=== PATIENT | female | born 1995 | race Two or more races ===

== ENCOUNTER 2018-05-28 15:55 | Inpatient (IN) | payer OTHER ==
[~2018-05-28] VITALS: Ht 154.9 cm; Wt 70.8 kg
[~2018-05-28 15:55] MED LIST: PNV1COMB5
[2018-06-02] MEDS ORDERED: LIDOCAINE/SOD BICARB 8.4% SYR SC PRN (19:15)
[2018-06-02] MEDS ORDERED: DINOPROSTONE 10 MG INSERT PV ONE (19:15)
[2018-06-02] MEDS ORDERED: METOCLOPRAMIDE 10 MG/2 ML SDV IVP PRN (19:15)
[2018-06-02] MEDS ORDERED: FAMOTIDINE(*) 20MG/50ML PREMIX 50 ML IVPB PRN (19:15)
[2018-06-02] MEDS ORDERED: cefOXitin/DEX(*) 2GM/50ML PREM 50 ML IVPB PRN (19:15)
[2018-06-02] MEDS ORDERED: FLUSH 10 ML SYR IVP PRN (19:15)
[2018-06-02] MEDS ORDERED: LIDOCAINE 1% LOCAL 300 MG/30ML INJ PRN (19:15)
[2018-06-02 19:30] VITALS: BP 137/88; Ht 154.9 cm; Wt 70.8 kg
[2018-06-02 20:13] LABS: PLATELET COUNT, AUTOMATED 160 K/uL (150-450)
[2018-06-02] MEDS ORDERED: OXYTOCIN 30 UNIT/D5LR 500 ML 500 ML IV PRN (20:44)
[2018-06-02] MEDS: DLR(*) 1000 ML BAG 1,000 ML IV PRN (21:31)
[2018-06-02] MEDS: LR(*) 1000 ML BAG 1,000 ML IV PRN (21:32)
[2018-06-03] MEDS: DLR(*) 1000 ML BAG 1,000 ML IV PRN ×2 (05:36→19:28)
[2018-06-03] MEDS ORDERED: fentaNYL CITR 100 MCG/2 ML AMP IT PRN (07:00)
[2018-06-03] MEDS ORDERED: FENTANYL/ROPIVACAINE 100 ML BAG EPI PRN (07:00)
[2018-06-03] MEDS ORDERED: LIDOCAINE/PF 2% 200MG/10ML AMP 200 MG/10 ML AMPUL EPI PRN (07:00)
[2018-06-03] MEDS ORDERED: BUPIVACAINE 0.25% MPF INJ EPI PRN (07:00)
[2018-06-03] MEDS ORDERED: BUPIVACAINE 0.5% INJ 30ML VIAL EPI PRN (07:00)
[2018-06-03] MEDS ORDERED: LIDO/EPI 2% MPF 1:200,000 20ML EPI PRN (07:00)
--- NOTE | 2018-06-03 08:00 | History & Physical ---
History of Present Illness Age of Patient: 22 : 1 Para or TPAL: 0000 EDC per LMP: May 28, 2018 Estimated Gestational Age: 40.6 Chief Complaint post term History of Present Illness The patient is a 22 year old 1 para 0000 admitted at 40 6/7 weeks estimated gestational age with an estimated date of delivery 05/28/18. Patient is admitted for IOL for post term. No vaginal bleeding. Good movement and occasional contractions. She was evaluated for active labor. She had an uncomplicated course. Her record was reviewed. History Allergies: Coded Allergies: No Known Drug Allergies (Unverified , 08/20/17) Med Rec Home Meds Reported Medications Pnv #116/Iron Fumarate/Fa/Dha (EXPECTA COMBO PACK) 1 Each Combo..pkg 05/07/18 Exam General Exam Vital Signs Vital Signs Date Time Temp Pulse Resp B/P (MAP) Pulse Ox O2 Delivery O2 Flow Rate FiO2 06/02/18 19:30 97.7 83 16 137/88 (104) 97 Room Air Cardiovascular: Regular Rate and Rhythm Respiratory: Clear to Auscultation Abdomen: Gravid - Non-Tender Extremities: No Edema Cervical Dialation: 2 Cervical Effacement (%): 80 Cervical Consistency: Soft Cervical Position: Mid Station: -1 Presentation: Vertex Uterine Contractions(Q min): 10 Uterine Contraction Strength: Mild Fetus Heart Tones: 130 Heart Tone Variabilty: Moderate FHT Category: I Medical Decision Making Data Points Result Diagram: 06/02/181957 Assessment and Plan Problems: (1) Post-dates Assessment & Plan: cervadil placed for IOL, cytotec placed will monitor for change Copies to: POOJA LAKE MD ; Problem Qualifiers (1) Post-dates : Post-term type: 40-42 weeks gestation Qualified Codes: O48.0 - Post-term POOJA LAKE MD Jun 03, 2018 08:00
[2018-06-03] MEDS ORDERED: MISOPROSTOL 25 MCG CAP PV PRN (08:10)
[2018-06-03] MEDS ORDERED: MISOPROSTOL 25 MCG CAP ONE (08:18)
[2018-06-03] MEDS ORDERED: EPIDURAL KEYS XX PRN (12:00)
--- NOTE | 2018-06-03 12:49 | Labor Progress Note ---
Labor Subjective Progress Notes Subjective feeling mild contractions Labor Pain: Mild Labor Objective Vital Signs Vital Signs Date Time Temp Pulse Resp B/P (MAP) Pulse Ox O2 Delivery O2 Flow Rate FiO2 06/02/18 19:30 97.7 83 16 137/88 (104) 97 Room Air Cervical Dialation: 2.5 Cervical Effacement (%): 90 Cervical Consistency: Moderate Cervical Position: Mid Station: 0 Presentation: Vertex Uterine Contractions(Q min): 3 Uterine Contraction Strength: Mild Fetus Heart Tones: 130 Heart Tone Variabilty: Moderate FHT Accelerations: 15X15 FHT Category: I Other Result Diagram: 06/02/181957 Assessment and Plan Problems: (1) Post-dates Assessment & Plan: AROM CLEAR FLUID, WILL MONITOR FOR CERVICAL CHANGE Problem Qualifiers (1) Post-dates : Post-term type: 40-42 weeks gestation Qualified Codes: O48.0 - Post-term POOJA LAKE MD Jun 03, 2018 12:49
[2018-06-03] MEDS ORDERED: ONDANSETRON 4 MG/2 ML VIAL IVP PRN (16:30)
--- NOTE | 2018-06-03 17:47 | Labor Progress Note ---
Labor Subjective Progress Notes Subjective FEELING CONTRACTIONS Vaginal Discharge/Fluid: Clear Fluid Labor Pain: Moderate Labor Objective Vital Signs Vital Signs Date Time Temp Pulse Resp B/P (MAP) Pulse Ox O2 Delivery O2 Flow Rate FiO2 06/02/18 19:30 97.7 83 16 137/88 (104) 97 Room Air Cervical Dialation: 4 Cervical Effacement (%): 100 Cervical Consistency: Soft Cervical Position: Anterior Station: 0 Presentation: Vertex Uterine Contractions(Q min): 3 Uterine Contraction Strength: Moderate Fetus Heart Tones: 130 FHT Category: I Other Result Diagram: 06/02/181957 Assessment and Plan Problems: (1) Post-dates Assessment & Plan: FEELING CONTRACTIONS CONSIDERING AN EPIDURAL, MAY NEED IUPC TO ASSESS STRENGTH OF CONTRACTIONS Problem Qualifiers (1) Post-dates : Post-term type: 40-42 weeks gestation Qualified Codes: O48.0 - Post-term POOJA LAKE MD Jun 03, 2018 17:47
[2018-06-03] MEDS: fentaNYL CITR 100 MCG/2 ML AMP IVP PRN ×2 (17:54→20:02)
[2018-06-03] MEDS ORDERED: NS(*) 0.9% 1000 ML BAG 1,000 ML PV PRN (19:56)
--- NOTE | 2018-06-03 19:56 | Labor Progress Note ---
Labor Subjective Progress Notes Subjective feeling contractions Vaginal Discharge/Fluid: Clear Fluid Labor Pain: Moderate Labor Objective Vital Signs Vital Signs Date Time Temp Pulse Resp B/P (MAP) Pulse Ox O2 Delivery O2 Flow Rate FiO2 06/02/18 19:30 97.7 83 16 137/88 (104) 97 Room Air Cervical Dialation: 5 Cervical Effacement (%): 100 Cervical Consistency: Soft Cervical Position: Anterior Presentation: Vertex Uterine Contractions(Q min): 3 Uterine Contraction Strength: Strong Fetus Heart Tones: 130 Heart Tone Variabilty: Moderate FHT Decelerations: Variable FHT Category: II Other Result Diagram: 06/02/181957 Assessment and Plan Problems: (1) Post-dates Assessment & Plan: IUPC AND FSE PLACED WILL AMNIOINFUSE WILL MONITOR FOR CHANGE Problem Qualifiers (1) Post-dates : Post-term type: 40-42 weeks gestation Qualified Codes: O48.0 - Post-term POOJA LAKE MD Jun 03, 2018 19:56
[2018-06-03] MEDS ORDERED: NS(*) 0.9% 1000 ML BAG 1,000 ML ONE (19:58)
[2018-06-03] MEDS: LR(*) 1000 ML BAG 1,000 ML IV PRN ×2 (20:35→22:40)
--- NOTE | 2018-06-03 21:30 | Labor Progress Note ---
Labor Subjective Progress Notes Subjective FEELING CONTRACTIONS Vaginal Discharge/Fluid: Clear Fluid Labor Pain: Severe Labor Objective Vital Signs Vital Signs Date Time Temp Pulse Resp B/P (MAP) Pulse Ox O2 Delivery O2 Flow Rate FiO2 06/02/18 19:30 97.7 83 16 137/88 (104) 97 Room Air Cervical Dialation: 5 Presentation: Vertex Uterine Contractions(Q min): 3 Uterine Contraction Strength: Strong Fetus Heart Tones: 120 Heart Tone Variabilty: Moderate FHT Decelerations: Early FHT Category: II Other Result Diagram: 06/02/181957 Assessment and Plan Problems: (1) Post-dates (2) Active labor at term Assessment & Plan: NO SIGNIFICANT CHANGE DESPITE ADEQUATE CONTRACTIONS. OFFERED C SECTION VS EPIDURAL TO SEE IF IMPROVED PAIN CONTROL WOULD HELP, WILL GET EPIDURAL AND MONITOR FOR CHANGE IN CERVIX Problem Qualifiers (1) Post-dates : Post-term type: 40-42 weeks gestation Qualified Codes: O48.0 - Post-term POOJA LAKE MD Jun 03, 2018 21:30
--- NOTE | 2018-06-03 22:41 | Anesthesia OB Pre-Anes Eval ---
History of Present Illness Anesthesia Start Date: Jun 03, 2018 Anesthesia Start Time: 21:45 OB Anesthesia Diagnosis: induction - medical Complications: None known EDC: May 28, 2018 : 1 Para: 0 Vital Signs: Vital Signs Date Time Temp Pulse Resp B/P (MAP) Pulse Ox O2 Delivery O2 Flow Rate FiO2 06/02/18 19:30 97.7 83 16 137/88 (104) 97 Room Air Pain Ratin Heart Tones: WNL Result Diagram: 06/02/181957 Height (Inches): 61.00 Weight (Pounds): 156 BMI Calculated: 29.47 Past Medical History Medical History: no pertinent history Surgical History: no surgical history Attended Childbirth Classes?: No Hx Anesthesia Reactions: No Hx Family Anesthesia Reaction: No Current Medications: pain medication (IV Fentenyl x2 doses) Home Meds Reported Medications Pnv #116/Iron Fumarate/Fa/Dha (EXPECTA COMBO PACK) 1 Each Combo..pkg 05/07/18 Allergies: Coded Allergies: No Known Drug Allergies (Unverified , 08/20/17) Anesthesia OB ROS Neurological: No migraines/headaches, No seizures, No neuropathy Eyes ROS: contacts in Contacts Statement: Patient agrees to continued use of contacts if general anesthesia is required. ENT: Denies Tooth caps, Denies Loose teeth, Denies Chipped teeth, Denies Dentures, Denies Bridges, Denies Retainers, Denies Veneers, Denies Implants, Denies Tongue ring Pulmonary: No asthma, No smoker (pks/day/yrs) Airway Class: lll Cardiovascular ROS: No edema, No arrhythmia GI ROS: clear liquids Last Solids Date: Jun 02, 2018 Last Solids Time: 22:00 ROS: No Herpes, No STD(s), No Liver Disease, No Renal Disease; Other Endocrine ROS: No diabetes, No gestational diabetes, No thyroid disorder Musculoskeletal ROS: No low back pain, No low back injury, No scoliosis ASA Classification: 2 Assessment and Plan Anesthesia Plan: CSE Assessment Past Medical, Surgical, Family and Obstetric Histories reviewed. Please see ACOG chart. Epidural anesthesia risks, complications and benefits explained to patient's satisfaction for labor and vaginal delivery and/or section. General anesthesia risks and benefits explained to patient's satisfaction. Questions invited, none asked. VARUN FIGUEROA CRNA Jun 03, 2018 22:41
--- NOTE | 2018-06-03 22:46 | Procedure Note ---
Anesthetic Placement Note Anesthesia Plan: CSE Permit for Anesthesia Signed: Yes Anesthesia Technique: Patient Sitting Anesthesia Prep: Chlorhexidine Interspace: L 3-4 Local Anesthetic: 1% Lidocaine, 25 Gauge Needle Amount Local - cc's: 2 Anesthesia Needle: 17g Touhy/Schliff Anesthesia Attempts: 1 Loss of Resistance: Air Depth of BETITO (cm): 4 Epidural Needle Placement: No CSF, No Blood, No Parasthesia Intrathecal Needle: 27 Gauge Pencan Cerebral Spinal Fluid: Yes, Clear Catheter Insertion (cm): 10 Catheter Type: Alvarez - Spring Wound Epidural Dressing: Tegaderm, Tape, Adhesive [place] Anesthesia Tray: Lot Number ([id number]), Expiration Date (2019-06-05), Reference Number ([id number]) Anesthesia Medications: Intrathecal Dose: mcg Fentanyl (15), mg Marcaine MPF (1.75), Time (2206) Epidural Test Dose: 1.5 Lido/Epi (1:200,000), Dose - mL (2), Time (0), Negative Epidural Loading Dose: 0.2% Ropivicaine, With Fentanyl 2mcg/ml, Dose - ml (5), Time (2222) Epidural Infusion: 0.2% Ropivicaine, With Fentanyl 2mcg/ml, Start Time: (2222) Epidural Pump Setting: Bolus Dose - mL (5), Lockout - Minutes (20), Maintenance Rate - mL/hr (6), Maximum per Hour - mL (21) Complications: None Comment: Pt. tolerated procedure very well. Becae comfortable within 5-7 minutes. Mild itching noted. VARUN FIGUEROA CRNA Jun 03, 2018 22:46
--- NOTE | 2018-06-03 23:15 | Labor Progress Note ---
Labor Subjective Progress Notes Subjective COMFORTABLE WITH EPIDURAL Vaginal Discharge/Fluid: Clear Fluid Labor Pain: Comfortable Labor Objective Vital Signs Vital Signs Date Time Temp Pulse Resp B/P (MAP) Pulse Ox O2 Delivery O2 Flow Rate FiO2 06/02/18 19:30 97.7 83 16 137/88 (104) 97 Room Air Cervical Dialation: 9 Cervical Effacement (%): 100 Cervical Consistency: Soft Cervical Position: Anterior Station: +2 Presentation: Vertex Uterine Contractions(Q min): 3 Uterine Contraction Strength: Strong Fetus Heart Tones: 120 Heart Tone Variabilty: Moderate FHT Decelerations: Variable FHT Category: II Other Result Diagram: 06/02/181957 Assessment and Plan Problems: (1) Post-dates (2) Active labor at term Assessment & Plan: MAKING PROGRESS WITH EPIDURAL IN PLACE, WILL MONITOR FOR CHANGE IN CERVIX Problem Qualifiers (1) Post-dates : Post-term type: 40-42 weeks gestation Qualified Codes: O48.0 - Post-term POOJA LAKE MD Jun 03, 2018 23:15
--- NOTE | 2018-06-03 23:29 | Anesthesia Progress Note ---
Progress/Maintenance Anesthesia Note Date: Jun 03, 2018 Anesthesia Note Time: 23:00 Pain Intensity: 0 Pump: On Pump Rate (ML/HR): 2 Sensory Level: T-10 Motor Level: Other Dilatation: 7 Position: Right, Tilt Assessment and Plan Assessment Pt. states her legs are becoming very heavy. Epidural pump rate decreased to 2ml/hr until pt begins to feel contractions again. VARUN FIGUEROA CRNA Jun 03, 2018 23:28
[2018-06-04] MEDS: LR(*) 1000 ML BAG 1,000 ML IV PRN (00:40)
--- NOTE | 2018-06-04 01:33 | OB Delivery Note ---
Delivery Note Vaginal Delivery Type: Spont. Vaginal Delivery Delivery Date: Jun 04, 2018 Delivery Time: 00:59 Estimated Gestational Age(wks): 41 Delivery Anesthesia: Epidural Sex: Male Infant Weight (gms): [address] [place] Apgars: 1 Minute (6), 5 Minute (9) Repair Needed: Laceration, Superficial, Vaginal Estimated Blood Loss: 400 Delivery Complications: Nuchal Cord, Other (TRUE KNOT) Notes: IOL WITH CERVADIL WITHOUT ANY PROGRESS OVER NIGHT. GIVEN ONE DOSE OF CYTOTEC AND MADE CERVICAL CHANGE AND AROM WITH CLEAR FLUID PERFORMED. MADE SLOW PROGRESS AND THEN NO CHANGE AT 5 CM, RECEIVED EPIDURAL AND PROGRESSED TO COMPLETE AND ALLOWED TO PUSH. VERTEX DELIVERED OVER INTACT PERINEUM NUCHAL CORD DELIVERED OVER HEAD AND TRUE KNOT NOTED. REMAINDER OF DELIVERED WITH EASE. DRIED AND PASSED TO WARMER. CORD PH AND CORD BLOOD OBTAINED. PH AT 7.15, HCO3 22, CO2 64, BE -7. PLACENTA DELIVERED AND REPAIR WITH 3-0 VICRYL ON SUPERFICIAL LACERATIONS. 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
[2018-06-04] MEDS ORDERED: LANOLIN OINT 7 GM TUBE TP PRN (01:35)
[2018-06-04] MEDS ORDERED: ACETAMINOPHEN 325 MG TAB PO PRN (01:35)
[2018-06-04] MEDS ORDERED: HYDROCORTISONE 2.5% CR 30GM TB PR PRN (01:35)
[2018-06-04] MEDS ORDERED: MAGNESIUM HYDROXIDE* 30ML UDCP PO PRN (01:35)
[2018-06-04] MEDS ORDERED: BENZOCAINE 20% 60 ML BTL TP PRN (01:35)
[2018-06-04] MEDS ORDERED: GLYCERIN/WITCH HAZEL LEAF 1 PK TOP PRN (01:35)
[2018-06-04] MEDS ORDERED: IBUP800T37 PO ×2 (01:37→09:25)
--- NOTE | 2018-06-04 01:38 | OB/GYN Discharge Summary ---
Discharge Summary Reason for Hosp/Final Diag: (1) Post-dates (2) Active labor at term (3) care following vaginal delivery Hospital Course & Plan: VAGINAL DELIVERY ON DAY 1, Pain controlled, Tolerating diet and activity. Baby . Normal lochia. Lates Vital Signs Vital Signs Date Time Temp Pulse Resp B/P (MAP) Pulse Ox O2 Delivery O2 Flow Rate FiO2 06/02/18 19:30 97.7 83 16 137/88 (104) 97 Room Air Weight (Pounds): 156 Result Diagram: 06/02/181957 Condition: Improved Discharge: Home, Self [facility] Meds Reported Medications Pnv #116/Iron Fumarate/Fa/Dha (EXPECTA COMBO PACK) 1 Each Combo..pkg 05/07/18 [facility] [phone] Follow up in: 6 wks PP or PO Discharge Diet: As Tolerates Discharge Activity: Pelvic Rest Copies to: POOJA LAKE MD ; Problem Qualifiers (1) Post-dates : Post-term type: 40-42 weeks gestation Qualified Codes: O48.0 - Post-term POOJA LAKE MD Jun 04, 2018 01:38
--- NOTE | 2018-06-04 01:40 | Anesthesia Progress Note ---
Progress/Maintenance Anesthesia Note Date: Jun 04, 2018 Anesthesia Note Time: 01:15 Pain Intensity: 0 Pump: Off Sensory Level: t-12 Motor Level: Bending Knees-Bilateral Dilatation: 10 Position: Semi-Fowlers Assessment and Plan Assessment Epidural pump remained at 2ml/hr. Pt was very comfortable, able to push well and had excellent tolerance of delivery and repair. Empty syringe attached to epidural catheter and RN agrees to remove with ambulation. Patient instructed the first ambulation is to be with help of nursing staff. Instructed to preform deep knee bends at bedside before walking. Anesthesia Stop Day: Jun 04, 2018 Anesthesia Stop Time: 01:15 VARUN FIGUEROA CRNA Jun 04, 2018 01:40
[2018-06-04] MEDS: IBUPROFEN 800 MG TAB PO SCH ×3 (04:21→19:03)
[2018-06-04 05:14] VITALS: BP 131/74
[2018-06-04] MEDS ORDERED: IBUPROFEN 800 MG TAB PO SCH (09:00)
[2018-06-04] MEDS: DOCUSATE CALCIUM 240 MG CAP PO SCH ×2 (09:04→21:27)
[2018-06-04] MEDS: MULTIVITAMINS (PRENATAL) TAB PO SCH (09:04)
--- NOTE | 2018-06-04 09:17 | OB/GYN Progress Note ---
OB Subjective Progress Notes Subjective Pain controlled, Tolerating diet and activity. Baby . Normal lochia. GI: POS Flatus; NEG Nausea, NEG Vomiting : Voiding Well Pain: Mild OB Objective Physical Exam Vital Signs Date Time Temp Pulse Resp B/P (MAP) Pulse Ox O2 Delivery O2 Flow Rate FiO2 06/04/18 05:14 98.4 108 16 131/74 (93) 96 Room Air Intake and Output 06/04/18 06:59 Intake Total 5300 ml Output Total 1000 ml Balance 4300 ml Intake IV Total 5300 ml Output Urine Total 1000 ml # Voids 1 Cardiovascular: Regular Rate and Rhythm Respiratory: Clear to Auscultation Abdomen: Soft, Non-Tender, Non-Distended, Bowel Sounds Present, Fundus Firm Extremities: No Edema Result Diagram: 06/02/181957 Assessment and Plan Post Day: 0 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 Baby . Normal lochia. Problem Qualifiers (1) Post-dates : Post-term type: 40-42 weeks gestation Qualified Codes: O48.0 - Post-term POOJA LAKE MD Jun 04, 2018 09:17
[2018-06-04 10:00] VITALS: BP 114/68
[2018-06-04] MEDS ORDERED: DIPHTH/TETANUS/ACEL. PERTUSSIS IM ONLY ONE (10:00)
[2018-06-04] MEDS ORDERED: MEASLES,MUMP,RUBELLA VAC 0.5ML SUBQ ONE (10:00)
[2018-06-04] MEDS ORDERED: INFLUENZA VIRUS VAC 0.5 ML SYR IM ONLY ONE (10:00)
--- NOTE | 2018-06-04 11:04 | Anesthesia Post Eval Note ---
Anesthesia Post Eval Note Vital Signs Date Time Temp Pulse Resp B/P (MAP) Pulse Ox O2 Delivery O2 Flow Rate FiO2 06/04/18 05:14 98.4 108 16 131/74 (93) 96 Room Air Pt able to participate in Eval: Yes Cardiovascular Status: Satisfactory Respiratory Status: Satisfactory Pain Managment: Satisfactory PO Nausea/Vomiting: Satisfactory Temperature Management: Satisfactory Mental Status: Satisfactory, Alert, Oriented X3 Post-Op Hydration Status: Satisfactory, Tolerating PO Well, Voiding w/o Difficulty Anesthesia Type: CSE Anesthesia Tolerance: Tolerated procedure well without apparent anesthetic complications. LP site clear, no redness or edema. Denies headache or any residual paresthesia. Vital Signs Stable, Patient comfortable and condition stable. VARUN FIGUEROA CRNA Jun 04, 2018 11:04
[2018-06-04 13:00] VITALS: BP 111/67
[2018-06-04] MEDS: HYDROmorphone HCL 2 MG TAB PO PRN ×2 (15:14→18:26)
[2018-06-04 19:05] VITALS: BP 133/88
[2018-06-04 22:51] VITALS: BP 117/61
[2018-06-05] MEDS: IBUPROFEN 800 MG TAB PO SCH ×2 (03:17→11:09)
[2018-06-05 08:05] VITALS: BP 116/72
[2018-06-05] MEDS: MULTIVITAMINS (PRENATAL) TAB PO SCH (08:13)
[2018-06-05] MEDS: DOCUSATE CALCIUM 240 MG CAP PO SCH (08:13)
--- NOTE | 2018-06-05 08:42 | OB/GYN Progress Note ---
OB Subjective Progress Notes Subjective Feeling well, wants to go home. Mild, decreasing lochia. Ambulating and voiding well. Mild vaginal pain, not requiring opioid analgesia. Baby also doing well. OB Objective Physical Exam Vital Signs Date Time Temp Pulse Resp B/P (MAP) Pulse Ox O2 Delivery O2 Flow Rate FiO2 06/04/18 22:51 97.9 92 15 117/61 (79) 94 Room Air Intake and Output 06/05/18 06:59 Intake Total 0 ml Output Total 500 ml Balance -500 ml Intake Oral 0 ml Output Urine Total 500 ml # Voids 2 General Appearance: Alert/Awake/No Acute Distress Cardiovascular: Regular Rate and Rhythm Respiratory: No Respiratory Distress, Clear to Auscultation Abdomen: Bowel Sounds Present, Fundus Firm (at U) Extremities: No Cyanosis,Clubbing or Edema Psychological: Alert & Oriented X3, Appropriate Mood & Affect Result Diagram: 06/05/18 0617 Assessment and Plan Problems: (1) care following vaginal delivery Assessment & Plan: Doing well , ready for discharge today. (2) Post-dates Status: Resolved (3) Active labor at term Status: Resolved Problem Qualifiers (1) Post-dates : Post-term type: 40-42 weeks gestation Qualified Codes: O48.0 - Post-term ETHEL INGRAM MD Jun 05, 2018 08:42
[2018-06-05 11:37] VITALS: BP 133/78
== END 2018-06-05 12:06 | disposition home or self-care (01) | DRG 775 ==
LOC: EDSTATUS 15:58 → OB 06-02 19:14
PROVIDERS: ADMIT Obstetrics & Gynecology; ATTEND Obstetrics & Gynecology
PROC: 10907ZC Drainage of Amniotic Fluid, Therapeutic from Products of Conception, Via Natural or Artificial Opening (ICD-10-PCS; 2018-06-03)
PROC: 3E0P7VZ Introduction of Hormone into Female Reproductive, Via Natural or Artificial Opening (ICD-10-PCS; 2018-06-03)
PROC: 3E0E7KZ Introduction of Other Diagnostic Substance into Products of Conception, Via Natural or Artificial Opening (ICD-10-PCS; 2018-06-03)
PROC: 4A1H74Z Monitoring of Products of Conception, Cardiac Electrical Activity, Via Natural or Artificial Opening (ICD-10-PCS; 2018-06-03)
PROC: 10H073Z Insertion of Monitoring Electrode into Products of Conception, Via Natural or Artificial Opening (ICD-10-PCS; 2018-06-03)
PROC: 10E0XZZ Delivery of Products of Conception, External Approach (ICD-10-PCS; principal; 2018-06-04)
PROC: 0HQ9XZZ Repair Perineum Skin, External Approach (ICD-10-PCS; 2018-06-04)
DX: O48.0 Post-term pregnancy (principal); O69.81X0 Labor and delivery complicated by cord around neck, without compression, not applicable or unspecified; O69.2XX0 Labor and delivery complicated by other cord entanglement, with compression, not applicable or unspecified; O70.0 First degree perineal laceration during delivery; Z3A.41 41 weeks gestation of pregnancy; Z37.0 Single live birth
CPT/HCPCS: 36415; 85025; 85027; 86850; 86900; 86901; 88307; J2590; J3010; J7030; J7120; S0020

== ENCOUNTER → 2018-08-28 | Outpatient (CLI) | payer OTHER ==
[2018-06-02 19:30] VITALS: BMI 29.5
[~2018-08-28] MED LIST changes: +IBUP800T37 PO
--- NOTE | 2018-08-31 11:08 | RADIOLOGY IMAGING REPORT ---
FACILITY: [facility] PATIENT NAME: ZOILA KRISHNA : [id number] MR: [id number] V: [id number] EXAM DATE: ORDERING PHYSICIAN: DOUGLAS CLINTON TECHNOLOGIST: Melissa Doherty RT(R)(CT) PROCEDURE:US LEFT BREAST COMPARISON:None. INDICATIONS:UPPER OUTER QUADRANT LEFT BREAST LUMP WITH PAIN TIMES 1 MONTH. FINDINGS: In the upper outer quadrant of the Left breast in the approximate 10 o'clock position there is an irregular hypoechoic space occupying process measuring 1.7 x 1.2 x 1.6cm. The margins are poly lobulated. There appears to be some irregular fluid noted centrally. 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 A discrete abscess cavity is not identified. A 1 month follow-up Left Ultrasound following treatment for possible infection recommended unless clinical findings warrant more immediate attention. DIAGNOSTIC CATEGORY 3--PROBABLY BENIGN FINDING. RECOMMENDATIONS: ONE MONTH FOLLOW-UP ULTRASOUND: LEFT BREAST. IMPRESSION: BIRADS 3: Probably benign finding. A 1 month follow-up left breast Ultrasound is recommended following treatment for possible infection unless clinical findings warrant more immediate attention. Dictated by: Alyssia Owens M.D. on 08/28/2018 at 14:12 Transcribed by: MARIA DEL ROSARIO on 08/31/2018 at 8:53 Approved by: Alyssia Owens M.D. on 08/31/2018 at 11:07 [facility]
== END ==
LOC: US 06:44
PROVIDERS: ATTEND Obstetrics & Gynecology
DX: N63.21 Unspecified lump in the left breast, upper outer quadrant (principal)

== ENCOUNTER → 2019-05-05 | Outpatient (CLI) | payer OTHER ==
[2018-06-02 19:30] VITALS: BMI 29.5
== END ==
LOC: LAB 13:38
PROVIDERS: ATTEND Obstetrics & Gynecology
DX: O20.0 Threatened abortion (principal)
CPT/HCPCS: 36415; 84702

== ENCOUNTER → 2019-05-07 | Outpatient (CLI) | payer OTHER ==
[2018-06-02 19:30] VITALS: BMI 29.5
== END ==
LOC: LAB 09:32
PROVIDERS: ATTEND Obstetrics & Gynecology
DX: O20.0 Threatened abortion (principal)
CPT/HCPCS: 36415; 84702